=== PATIENT | female | born 1965 | race American Indian/Alaskan Native ===

== ENCOUNTER 2020-07-01 05:32 | Inpatient (IN) | payer MEDICAID ==
--- NOTE | 2020-06-29 15:01 | Anesthesia Consultation ---
Anesthesia Consult and Med Hx Date of service: 06/29/20 - Airway Anesthetic Teeth Evaluation: Chipped ROM Head & Neck: Adequate Mental/Hyoid Distance: Adequate Mallampati Class: Class II Intubation Access Assessment: Good - Pre-Operative Health Status ASA Pre-Surgery Classification: ASA2 Proposed Anesthetic Plan: Spinal (SAB; GA if needed) Nerve Block: AC - Pulmonary Hx Smoking: No Hx Asthma: No Hx Respiratory Symptoms: No (+2FS) COPD: No Hx Sleep Apnea: No (HIGH RISK SOSA PRESCREEN) - Cardiovascular System Hx Hypertension: Yes (2006) Hx Heart Attack/AMI: No Hx Percutaneous Transluminal Coronary Angioplasty (PTCA): No Hx Cardia Arrhythmia: No - Central Nervous System CVA: No Hx Back Pain: (NECK PAIN) - Gastrointestinal Hx Gastroesophageal Reflux Disease: No - Endocrine Hx Renal Disease: No Hx Liver Disease: No Hx Insulin Dependent Diabetes: No Hx Non-Insulin Dependent Diabetes: No Hx Thyroid Disease: No - Hematic Hx Anemia: Yes (Jehova's Witness-NO BLOOD) Hx Sickle Cell Disease: No - Other Systems Hx Alcohol Use: Yes (RARE) Hx Substance Use: No Hx Cancer: No Hx Obesity: Yes (BMI 42)
[2020-06-29 15:35] LABS: Hemoglobin 13.3 gm/dl (10.1-14.3); Mean Corpuscular HGB Conc 34 % (30-34); Mean Corpuscular Volume 94 fl (79-97); Platelet Count 214 K/mm3 (140-440); Red Blood Count 4.14 M/mm3 (3.65-5.03); Red Cell Distribution Width 14.2 % (13.2-15.2)
[2020-06-29 15:36] LABS: Alanine Aminotransferase 10 units/L (7-56); Albumin 4.2 g/dL (3.9-5); Blood Urea Nitrogen 16 mg/dL (7-17); Calcium 9.2 mg/dL (8.4-10.2); Hemolysis Index 9
[2020-06-29 15:44] LABS: BUN/Creatinine Ratio 23
[~2020-07-01 05:32] MED LIST: BUPIVACAINE/PF (0.5%) 5 MG/1 ML 30 ML VIAL INFILTRATI ONE; KETOROLAC 30 MG/1 ML INJ IV ONE; MORPHINE 10 MG/1 ML INJ IM ONE; SODIUM CHLORIDE 0.9% 100 ML IVPB IV ONE; SODIUM CHLORIDE 0.9% 50 ML VIAL INFILTRATI ONE; SODIUM CHLORIDE 0.9% IRRIG SOLN 2000 ML IR ONE; ceFAZolin/Water 2 GM/20 ML 2 GM/20 ML SYRINGE IV NR
[2020-07-01] MEDS ORDERED: MAGNESIUM OXIDE 400 MG TAB PO ONE (07:27)
[2020-07-01] MEDS ORDERED: dexAMETHasone 20 MG/5 ML VIAL ONE (07:27)
[2020-07-01] MEDS ORDERED: MIDAZOLAM 5 MG/5 ML INJ MDV IV ONE (07:27)
[2020-07-01] MEDS ORDERED: BUPIVACAINE/PF (0.25%) 2.5 MG/ML 30 ML VIAL INFILTRATI ONE (07:27)
[2020-07-01] MEDS ORDERED: dexAMETHasone 4 MG/ML VIAL ONE (07:30)
[2020-07-01] MEDS: LACTATED RINGERS 1,000 ML IV SCH ×2 (07:30→17:38)
[2020-07-01] MEDS ORDERED: BUPIVACAINE/PF (0.5%) 5 MG/1 ML 10 ML VIAL INFILTRATI ONE (07:35)
[2020-07-01] MEDS ORDERED: MORPHINE 10 MG/1 ML INJ ONE (07:35)
[2020-07-01] MEDS ORDERED: SODIUM CHLORIDE 0.9% 0 ML ONE ×2 (07:35→07:37)
[2020-07-01] MEDS ORDERED: KETOROLAC 30 MG/1 ML INJ ONE (07:36)
[2020-07-01] MEDS ORDERED: TRANEXAMIC ACID 1,000 MG/10 ML ONE (07:37)
[2020-07-01] MEDS ORDERED: HYDROmorphone 1 MG/1 ML INJ ONE (07:47)
[2020-07-01] MEDS ORDERED: MIDAZOLAM 2 MG/2 ML INJ ONE (07:47)
[2020-07-01] MEDS ORDERED: LIDOCAINE MPF (2%) 20 MG/1 ML VIAL 5 ML ONE (07:47)
[2020-07-01] MEDS ORDERED: propofoL 200 MG/20 ML VIAL IV ONE ×3 (07:47→10:01)
[2020-07-01] MEDS ORDERED: DEXMEDETOMIDINE 200 MCG/2 ML VIAL IV ONE (08:00)
[2020-07-01] MEDS ORDERED: CELECOXIB 200 MG CAP PO NR (08:00)
[2020-07-01] MEDS ORDERED: ACETAMINOPHEN 500 MG TAB PO ONE (08:00)
[2020-07-01] MEDS ORDERED: GABAPENTIN 300 MG CAP PO NR (08:00)
[2020-07-01] MEDS ORDERED: PHENYLEPHRINE/NS 1,000 MCG/10 ML SYRINGE (OR USE) IV ONE (09:28)
--- NOTE | 2020-07-01 09:32 | Anesthesia Day of Surgery ---
Anesthesia Day of Surgery - Day of Surgery Patient Examined: Yes Patient H&P Reviewed: Yes Patient is NPO: Yes
[2020-07-01] MEDS ORDERED: ONDANSETRON 4 MG/2 ML INJ IV PRN (09:34)
[2020-07-01] MEDS ORDERED: HYDROmorphone 1 MG/1 ML INJ IV PRN (09:34)
[2020-07-01] MEDS ORDERED: SODIUM CHLORIDE 0.9% IRRIG SOLN 2000 ML IR ONE (09:44)
[2020-07-01] MEDS ORDERED: SODIUM CHLORIDE 0.9% IRR 1,500 ML BOTTLE IR ONE (10:00)
[2020-07-01] MEDS ORDERED: WATER FOR IRRIG STERILE 1,500 ML BOTTLE IR ONE (10:56)
[2020-07-01] MEDS ORDERED: LACTATED RINGERS 1,000 ML ONE (11:11)
[2020-07-01] MEDS ORDERED: ONDANSETRON 4 MG/2 ML INJ ONE (11:13)
[2020-07-01] MEDS: ePHEDrine SULFATE 50 MG/1 ML INJ IV PRN ×2 (11:35→11:45)
[2020-07-01] MEDS ORDERED: ePHEDrine SULFATE 50 MG/1 ML INJ ONE (11:38)
[2020-07-01] MEDS ORDERED: HYDROcodone/ACETAMINOPHEN 5-325 MG TAB PO PRN (11:52)
[2020-07-01] MEDS ORDERED: PROMETHAZINE 25 MG RECT SUPP PR PRN (11:52)
--- NOTE | 2020-07-01 12:06 | Procedure Note ---
Date of procedure: 07/01/20 Pre-op diagnosis: Severe arthritis right knee Post-op diagnosis: same Procedure: [Right] total knee replacement Procedure The patient was brought to the OR after being given a obturator nerve block and preoperative holding she was placed on the OR table supine position following induction elevation of anesthesia the patient is [right] lower extremity was prepped and draped in the usual sterile manner. A timeout procedure was done to identify the patient in the correct operative site. The leg was exsanguinated followed by inflation of the pneumatic tourniquet to 300 mmHg. A midline incision was made over the patella was taken down distally towards the tibial tubercle next the medial retinaculum was incised and the patella was inverted examination of the patient's knee joint revealed typical osteoarthritic changes with large bone spurs noted primarily in the medial compartment both the femoral and tibial's articular surfaces exhibited bare bone and large peripheral osteophytes next a large drill bit was used to enter the medullary canal this was followed by placement of the distal femoral cutting Jig the distal femur was resected approximately 8-9 mm of bone was removed at this time. Attention was turned to the patient's proximal tibia using a external alignme guide the bone was cut using the medial surface as the low point of care was taken to protect the medial collateral ligaments. The tibial articular surface was resected approximately 8 to 10 mm again care was taken to protect the collateral ligaments next the proximal tibia was sized a #3 tibial tray was selected this was followed by sizing of polyethylene insert a 10 mm thick insert was selected the knee was then taken through a range of motion and was found to be stable following this the trial components were removed the knee was then copiously irrigated next the cement was mixed and the tibial tray was inserted followed by the polyethylene insert and finally the femoral component. Attention was turned to the distal femur and using a 4 and 1 cutting block a +4 component was selected AP anterior and posterior as well as Shamfer cuts were made, a +4 tibial ostomy femoral component was placed and the knee was then taken to a range of motion she appeared to have stability in both the flexion and extension FOLLOWING this the trial components were removed the knee was then copiously irrigated any remaining soft tissue and bony debris were removed at this time next the cement was next and following this the tibial components were inserted beginning with the based ray followed by the polyethylene insert The femoral component was added the excess were removed the knee was held in extension until the cement hardened following hardening of cement the knee was then brought back into of flexion any remaining soft tissue and bony debris were removed at this time. The wound again was irrigated and was closed in a standard routine fashion. Dressings were applied the patient tolerated the procedure there were no complications she was then taken to post anesthesia recovery Anesthesia: regional Surgeon: ERIC WHITE Neurosurgery Spine Physician: ERICH ARNOLD Estimated blood loss: 50-100ml Pathology: list Specimen disposition: to lab (Bony cartilage from right knee) Condition: stable Disposition: PACU
[2020-07-01] MEDS ORDERED: ceFAZolin/NS 1 GM/50 ML 1 GM/50 ML BAG IV SCH (14:00)
[2020-07-01] MEDS ORDERED: LACTATED RINGERS 1,000 ML IV SCH (14:00)
[2020-07-01] MEDS: oxyCODONE /ACETAMINOPHEN 5-325MG TAB PO PRN (15:32)
--- NOTE | 2020-07-01 16:42 | Post Anesthesia Evaluation ---
- Post Anesthesia Evaluation Patient Participated: Yes Airway Patent: Yes Stable Respiratory Function: Yes Nausea/Vomiting: No Temp > 96.8F: Yes Pain Manageable: Yes Adequeate Hydration: Yes Anesthesia Complications: No Block Receding Appropriately: Not Applicable Patient on Ventilator: No
[2020-07-01] MEDS: MORPHINE 4 MG/1 ML INJ IV PRN (17:19)
[2020-07-01] MEDS: ceFAZolin/NS 1 GM/50 ML 1 GM/50 ML BAG IV SCH (17:20)
[2020-07-01] MEDS: HYDROmorphone 1 MG/1 ML INJ IV PRN (20:28)
[2020-07-02] MEDS: HYDROmorphone 1 MG/1 ML INJ IV PRN ×2 (00:22→05:00)
[2020-07-02] MEDS: ceFAZolin/NS 1 GM/50 ML 1 GM/50 ML BAG IV SCH (01:58)
--- NOTE | 2020-07-02 08:35 | XRay Report ---
RIGHT KNEE 2 VIEW(S) INDICATION / CLINICAL INFORMATION: post op evaluation COMPARISON: None available. FINDINGS: Knee arthroplasty has been placed with satisfactory postoperative radiographic appearance. Moderate c ircumferential soft tissue swelling. Signer Name: Marlo Lopez MD Signed: 07/02/2020 8:31 AM Workstation Name: [id number]
[2020-07-02] MEDS: ENOXAPARIN 40 MG/0.4 ML INJ SUB-Q SCH (09:15)
[2020-07-02] MEDS: MORPHINE 4 MG/1 ML INJ IV PRN ×2 (09:15→15:32)
[2020-07-02] MEDS: oxyCODONE /ACETAMINOPHEN 5-325MG TAB PO PRN ×2 (11:27→17:07)
--- NOTE | 2020-07-02 14:59 | Progress Note ---
Assessment and Plan Status post right total knee replacement postop day 1 doing well Continue physical therapy will DC to home in the a.m. Subjective Date of service: 07/02/20 Interval history: my right knee fine but now left starting to hurt more, walked around the round and hallway fine... Objective Vital signs: Vital Signs - 12hr 07/02/20 07/02/20 07/02/20 04:35 07:32 08:34 Temperature 98.4 F 97.8 F Pulse Rate 70 77 Respiratory 18 18 Rate Blood Pressure 145/80 134/63 O2 Sat by Pulse 98 98 96 Oximetry Incision: healing, clean and dry Weight bearing status: as tolerated - Labs CBC & BMP: 06/29/20 14:45 06/29/20 14:45
[2020-07-02 16:21] LABS: Hematocrit 33.8 % (30.3-42.9); Hemoglobin 11.2 gm/dl (10.1-14.3)
[2020-07-03] MEDS: oxyCODONE /ACETAMINOPHEN 5-325MG TAB PO PRN ×3 (02:07→16:54)
[2020-07-03] MEDS ORDERED: ONDANSETRON 4 MG/2 ML INJ IV PRN (02:21)
[2020-07-03] MEDS: ENOXAPARIN 40 MG/0.4 ML INJ SUB-Q SCH (09:45)
[2020-07-03 11:59] VITALS: BP 136/82
== END 2020-07-03 17:30 | disposition home health service (06) | DRG 470 ==
LOC: 3A 05:32 → 3B-SURG 13:46
PROVIDERS: ADMIT Orthopaedic Surgery; ATTEND Orthopaedic Surgery
PROC: 0SRC0J9 Replacement of Right Knee Joint with Synthetic Substitute, Cemented, Open Approach (ICD-10-PCS; principal; 2020-07-01)
PROC: 3E0T3BZ Introduction of Anesthetic Agent into Peripheral Nerves and Plexi, Percutaneous Approach (ICD-10-PCS; 2020-07-01)
DX: M17.11 Unilateral primary osteoarthritis, right knee (principal); Z98.51 Tubal ligation status; Z83.3 Family history of diabetes mellitus; Z80.9 Family history of malignant neoplasm, unspecified; Z82.49 Family history of ischemic heart disease and other diseases of the circulatory system; Z84.89 Family history of other specified conditions; E66.9 Obesity, unspecified; Z68.41 Body mass index [BMI] 40.0-44.9, adult
CPT/HCPCS: 36415; 64450; 80053; 82962; 85014; 85018; 85027; 88305; G0378; A4217; C1776; J0690; J1100; J1170; J1650; J1885; J2250; J2270; J2370; J2405; J2704; J3490; J7120; U0003-CS